=== PATIENT | female | born 1985 | race Caucasian/White ===

== ENCOUNTER 2016-10-31 15:12 | Emergency (ER) | payer MEDICAID ==
[~2016-10-31] VITALS: Ht 165.1 cm; Wt 78.0 kg
[2016-10-31 15:15] VITALS: BP 119/84
== END 2016-10-31 16:26 | disposition home or self-care (01) ==
LOC: ED 15:56
DX: G89.18 Other acute postprocedural pain (principal); R10.9 Unspecified abdominal pain; G89.29 Other chronic pain; I10 Essential (primary) hypertension; J45.909 Unspecified asthma, uncomplicated; E78.5 Hyperlipidemia, unspecified; Z87.01 Personal history of pneumonia (recurrent); Z98.890 Other specified postprocedural states
CPT/HCPCS: 99283

== ENCOUNTER 2017-02-26 22:05 | Emergency (ER) | payer MEDICAID ==
[~2017-02-26] VITALS: Ht 165.1 cm; Wt 78.0 kg
[2017-02-26 22:08] VITALS: BP 130/88
== END 2017-02-26 23:19 | disposition left against medical advice (07) ==
LOC: ED 23:05
DX: R51 Headache (principal); Z53.21 Procedure and treatment not carried out due to patient leaving prior to being seen by health care provider

== ENCOUNTER 2017-06-04 20:28 | Emergency (ER) | payer MEDICAID ==
[~2017-06-04] VITALS: Ht 165.1 cm; Wt 86.8 kg
[2017-06-04 20:35] VITALS: BP 131/89
[2017-06-04] MEDS ORDERED: ALBUTEROL/IPRATROPIUM 2.5MG/0.5MG, 3 ML NPPB ONE (21:00)
== END 2017-06-04 21:58 ==
LOC: ED 20:54
DX: J45.40 Moderate persistent asthma, uncomplicated (principal)
CPT/HCPCS: 71020; 93005; 94640; 99284; J7512; J7620

== ENCOUNTER 2017-07-17 22:40 | Emergency (ER) | payer MEDICAID ==
[~2017-07-17] VITALS: Ht 165.1 cm; Wt 86.4 kg
[2017-07-17 22:41] VITALS: BP 117/80
[2017-07-17] MEDS ORDERED: ACETAMINOPHEN 325 MG TABLET ONE (23:19)
[2017-07-17] MEDS ORDERED: ACETAMINOPHEN 325 MG TABLET PO ONE (23:30)
== END 2017-07-17 23:57 | disposition home or self-care (01) ==
LOC: ED 23:51
DX: S60.211A Contusion of right wrist, initial encounter (principal); S60.221A Contusion of right hand, initial encounter; X58.XXXA Exposure to other specified factors, initial encounter; Y93.89 Activity, other specified; Y99.8 Other external cause status; Y92.009 Unspecified place in unspecified non-institutional (private) residence as the place of occurrence of the external cause
CPT/HCPCS: 99284

== ENCOUNTER 2017-08-19 21:45 | Emergency (ER) | payer MEDICAID ==
[~2017-08-19] VITALS: Ht 165.1 cm; Wt 87.7 kg
[2017-08-19] MEDS ORDERED: ALBU1.25 NEB (22:12)
[2017-08-19] MEDS ORDERED: BUDE10.22 PO (22:12)
[2017-08-19] MEDS ORDERED: PROCHLORPERAZINE 5 MG/ML, 2ML ONE (22:48)
[2017-08-19] MEDS ORDERED: KETOROLAC 30 MG/1 ML ONE (22:48)
[2017-08-19] MEDS ORDERED: SODIUM CHLORIDE 0.9% 1,000ML IVBOLUS ONE (23:00)
[2017-08-19] MEDS ORDERED: PROCHLORPERAZINE 5 MG/ML, 2ML IVPush ONE (23:00)
[2017-08-19] MEDS ORDERED: KETOROLAC 30 MG/1 ML IVPush ONE (23:00)
[2017-08-19 23:13] LABS: BASOPHILS # (AUTO) 0.04 x10^3/uL (0-0.1); BASOPHILS % (AUTO) 0 % (0-1); EOSINOPHILS # (AUTO) 0.23 x10^3/uL (0-0.4); EOSINOPHILS % (AUTO) 2 % (1-7); LYMPHOCYTES % (AUTO) 26 % (22-44); MD NO; MEAN CORPUSCULAR HEMOGLOBIN 24.8 pg (27.0-34.8); MEAN CORPUSCULAR HGB CONC 32.1 g/dL (32.4-35.8); MEAN CORPUSCULAR VOLUME 77.3 fL (80-100); MEAN PLATELET VOLUME 9.9 fL (7.4-10.4); MONOCYTES # (AUTO) 0.49 x10^3/uL (0.2-0.8); MONOCYTES % (AUTO) 5 % (2-9); NEUTROPHILS # (AUTO) 6.54 x10^3/uL (1.8-6.8); NEUTROPHILS % (AUTO) 66 % (42-75); PLATELET COUNT 254 x10^3/uL (130-400); RED BLOOD COUNT 4.97 x10^6/uL (3.82-5.3)
[2017-08-19 23:22] LABS: ALBUMIN 3.6 g/dL (3.4-5.0); ANION GAP 7 mmol/L (5-15); CALCIUM 8.8 mg/dL (8.5-10.1); CHLORIDE 109 mmol/L (98-107); CREATININE 0.73 mg/dL (0.55-1.02)
[2017-08-19 23:25] LABS: TROPONIN I < 0.015 ng/mL (0.000-0.045)
[2017-08-20] VITALS: BP 152/84
== END 2017-08-20 00:03 | disposition home or self-care (01) ==
LOC: ED 22:28
DX: G43.009 Migraine without aura, not intractable, without status migrainosus (principal); I10 Essential (primary) hypertension; E78.5 Hyperlipidemia, unspecified; J45.909 Unspecified asthma, uncomplicated
CPT/HCPCS: 36415; 71045; 80048; 82040; 84484; 85025; 93005; 96374; 96375; 99285; J0780; J1885; J7030

== ENCOUNTER 2017-09-02 22:23 | Emergency (ER) | payer MEDICAID ==
[~2017-09-02] VITALS: Ht 165.1 cm; Wt 86.3 kg
[~2017-09-02 22:23] MED LIST: ALBU1.25 NEB; BUDE10.22 PO
[2017-09-02 22:26] VITALS: BP 125/88
[2017-09-02] MEDS ORDERED: IBUPROFEN 200 MG TABLET PO ONE (23:30)
[2017-09-02] MEDS ORDERED: IBUPROFEN 200 MG TABLET ONE (23:33)
== END 2017-09-03 | disposition home or self-care (01) ==
LOC: ED 22:54
DX: S39.012A Strain of muscle, fascia and tendon of lower back, initial encounter (principal); G43.909 Migraine, unspecified, not intractable, without status migrainosus; I10 Essential (primary) hypertension; E78.5 Hyperlipidemia, unspecified; W01.0XXA Fall on same level from slipping, tripping and stumbling without subsequent striking against object, initial encounter; Y93.89 Activity, other specified; Y92.89 Other specified places as the place of occurrence of the external cause; Y99.8 Other external cause status
CPT/HCPCS: 72072; 72110; 99284

== ENCOUNTER 2018-02-06 21:01 | Emergency (ER) | payer MEDICAID ==
[~2018-02-06] VITALS: Ht 160 cm; Wt 80.0 kg
[2018-02-06 21:12] VITALS: BP 117/78
[2018-02-06] MEDS ORDERED: IBUPROFEN 200 MG TABLET ONE (21:38)
[2018-02-06] MEDS ORDERED: IBUPROFEN 200 MG TABLET PO ONE (22:00)
[2018-02-07] MEDS ORDERED: CETIRIZINE 10 MG TABLET PO SCH (09:00)
== END 2018-02-06 23:18 | disposition home or self-care (01) ==
LOC: ED 23:16
DX: H10.233 Serous conjunctivitis, except viral, bilateral (principal); G89.11 Acute pain due to trauma; M79.641 Pain in right hand; F17.200 Nicotine dependence, unspecified, uncomplicated; I10 Essential (primary) hypertension; J45.909 Unspecified asthma, uncomplicated; E78.5 Hyperlipidemia, unspecified; F41.1 Generalized anxiety disorder; F32.9 Major depressive disorder, single episode, unspecified
CPT/HCPCS: 99284

== ENCOUNTER 2018-05-02 23:31 | Emergency (ER) | payer MEDICAID ==
[~2018-05-02] VITALS: Ht 165.1 cm; Wt 85.0 kg
[2018-05-02 23:34] VITALS: BP 135/88
[2018-05-02] MEDS ORDERED: ALBUTEROL/IPRATROPIUM 2.5MG/0.5MG, 3 ML ONE (23:59)
[2018-05-03] MEDS ORDERED: ALBUTEROL/IPRATROPIUM 2.5MG/0.5MG, 3 ML NPPB ONE
== END 2018-05-03 00:35 | disposition home or self-care (01) ==
LOC: ED 05-03 00:15
DX: J06.9 Acute upper respiratory infection, unspecified (principal); I10 Essential (primary) hypertension; J45.909 Unspecified asthma, uncomplicated
CPT/HCPCS: 71046; 94640; 99284; J7512

== ENCOUNTER 2018-07-30 20:55 | Emergency (ER) | payer MEDICAID ==
[~2018-07-30] VITALS: Ht 165.1 cm; Wt 86.4 kg
[~2018-07-30 20:55] MED LIST changes: +TIOT18CA INH
--- NOTE | 2018-07-30 21:27 | NUR ---
P MEDICATED PER SEP. PT GIVEN JUICE AND TISSUES PER REQUEST.
[2018-07-30 21:36] VITALS: BP 131/74
== END 2018-07-30 21:37 | disposition home or self-care (01) ==
LOC: ED 21:19
DX: J45.31 Mild persistent asthma with (acute) exacerbation (principal); J02.8 Acute pharyngitis due to other specified organisms; B97.89 Other viral agents as the cause of diseases classified elsewhere; E78.5 Hyperlipidemia, unspecified; I10 Essential (primary) hypertension; G43.909 Migraine, unspecified, not intractable, without status migrainosus
CPT/HCPCS: 99283; J7512

== ENCOUNTER 2018-08-26 19:38 | Emergency (ER) | payer MEDICAID ==
[~2018-08-26] VITALS: Ht 165.1 cm; Wt 68.0 kg
[2018-08-26 19:38] VITALS: BP 108/68
[2018-08-26] MEDS ORDERED: OXYcodone/APAP 5/325MG TABLET PO ONE (20:00)
[2018-08-26] MEDS ORDERED: PROMETHAZINE 25 MG/ML, 1ML IM ONE (20:00)
[2018-08-26] MEDS ORDERED: PROMETHAZINE 25 MG/ML, 1ML ONE (20:12)
[2018-08-26] MEDS ORDERED: OXYcodone/APAP 5/325MG TABLET ONE (20:13)
--- NOTE | 2018-08-26 20:25 | NUR ---
PT MEDICATED PER EMAR FOR PAIN. PT REFUSED PHENERGAN SINCE IT WAS AN INJECTION.
--- NOTE | 2018-08-26 20:34 | NUR ---
PT PROVIDED WITH WARM BLANKETS.
--- NOTE | 2018-08-26 21:29 | NUR ---
Patient/Caregiver given discharge instructions and they have confirmed that they understand the instructions. Patient ambulatory with steady gait.
[2018-08-26] MEDS ORDERED: KETOROLAC 30 MG/1 ML IM ONE (21:30)
== END 2018-08-26 21:31 | disposition home or self-care (01) ==
LOC: ED 20:06
DX: K08.89 Other specified disorders of teeth and supporting structures (principal); R11.10 Vomiting, unspecified; F17.200 Nicotine dependence, unspecified, uncomplicated; G43.909 Migraine, unspecified, not intractable, without status migrainosus; E78.5 Hyperlipidemia, unspecified; I10 Essential (primary) hypertension; J45.909 Unspecified asthma, uncomplicated; Z88.1 Allergy status to other antibiotic agents; Z88.5 Allergy status to narcotic agent
CPT/HCPCS: 99283

== ENCOUNTER 2018-09-29 22:56 | Emergency (ER) | payer MEDICAID ==
[~2018-09-29] VITALS: Ht 165.1 cm; Wt 85.5 kg
[2018-09-30] MEDS ORDERED: ACETAMINOPHEN 500 MG TABLET PO ONE
[2018-09-30] MEDS ORDERED: IBUPROFEN 600 MG TABLET PO ONE
[2018-09-30] MEDS ORDERED: IBUPROFEN 600 MG TABLET ONE (00:08)
[2018-09-30] MEDS ORDERED: ACETAMINOPHEN 500 MG TABLET ONE (00:08)
--- NOTE | 2018-09-30 00:16 | NUR ---
PT MEDICATED. VSS. WAITING FOR XRAY RESULTS. SPOUSE AT BEDSIDE
[2018-09-30 00:30] VITALS: BP 128/81
--- NOTE | 2018-09-30 00:55 | NUR ---
Patient given discharge instructions and they have confirmed that they understand the instructions. Patient ambulatory with steady gait.
== END 2018-09-30 00:58 | disposition home or self-care (01) ==
LOC: ED 09-30 00:31
DX: J44.1 Chronic obstructive pulmonary disease with (acute) exacerbation (principal); I10 Essential (primary) hypertension; F41.1 Generalized anxiety disorder; F31.9 Bipolar disorder, unspecified; E78.5 Hyperlipidemia, unspecified
CPT/HCPCS: 71045; 93005; 99284; J7512

== ENCOUNTER 2018-12-01 15:04 | Emergency (ER) | payer MEDICAID ==
[~2018-12-01] VITALS: Ht 165.1 cm; Wt 83.6 kg
[2018-12-01 15:07] VITALS: BP 125/85
[2018-12-01] MEDS ORDERED: ALBUTEROL/IPRATROPIUM 2.5MG/0.5MG, 3 ML NPPB ONE (15:30)
[2018-12-01 15:50] LABS: BASOPHILS # (AUTO) 0.02 x10^3/uL (0-0.1); BASOPHILS % (AUTO) 0 % (0-1); EOSINOPHILS # (AUTO) 0.29 x10^3/uL (0-0.4); EOSINOPHILS % (AUTO) 3 % (1-7); LYMPHOCYTES # (AUTO) 2.37 x10^3/uL (1-3.4); LYMPHOCYTES % (AUTO) 25 % (22-44); MD NO; MEAN CORPUSCULAR HEMOGLOBIN 26.8 pg (27.0-34.8); MEAN CORPUSCULAR HGB CONC 32.4 g/dL (32.4-35.8); MEAN CORPUSCULAR VOLUME 82.5 fL (80-100); MEAN PLATELET VOLUME 10.4 fL (7.4-10.4); MONOCYTES % (AUTO) 3 % (2-9); NEUTROPHILS # (AUTO) 6.52 x10^3/uL (1.8-6.8); NEUTROPHILS % (AUTO) 69 % (42-75); PLATELET COUNT 219 x10^3/uL (130-400); RED BLOOD COUNT 4.56 x10^6/uL (3.82-5.3); RED CELL DISTRIBUTION WIDTH 13.7 % (9.6-15.2)
[2018-12-01 16:02] LABS: ALBUMIN 3.5 g/dL (3.4-5.0); ANION GAP 6 mmol/L (5-15); CHLORIDE 110 mmol/L (98-107)
[2018-12-01 16:10] LABS: ALANINE AMINOTRANSFERASE 17 U/L (12-78); ALKALINE PHOSPHATASE 41 U/L (45-117); BILIRUBIN,TOTAL 0.1 mg/dL (0.2-1.0); CALCIUM 8.4 mg/dL (8.5-10.1); CREATININE 0.82 mg/dL (0.55-1.02); TOTAL PROTEIN 6.8 g/dL (6.4-8.2); TROPONIN I < 0.015 ng/mL (0.000-0.045)
[2018-12-01] MEDS ORDERED: ADVAIR (21:33)
== END 2018-12-01 16:57 | disposition left against medical advice (07) ==
LOC: ED 16:51
DX: R07.9 Chest pain, unspecified (principal)
CPT/HCPCS: 36415; 71046; 80053; 84484; 85025; 93005; 99284

== ENCOUNTER 2018-12-01 21:15 | Emergency (ER) | payer MEDICAID ==
[~2018-12-01] VITALS: Ht 165.1 cm; Wt 86.0 kg
[2018-12-01 21:20] VITALS: BP 131/82
[2018-12-01] MEDS ORDERED: ADVAIR (21:33)
--- NOTE | 2018-12-01 21:33 | NUR ---
WERE HERE EARLIER, LEFT BEFORE REC ALL RESULTS THEY BECAME ANXIOUS. PT NOTES THAT SHE IS OUT OF HER INHALERS AND IS ASKING FOR A REFILL.
[2018-12-01] MEDS ORDERED: IBUPROFEN 800 MG TABLET PO ONE (22:00)
[2018-12-01] MEDS ORDERED: IBUPROFEN 800 MG TABLET ONE (22:10)
== END 2018-12-01 22:23 | disposition home or self-care (01) ==
LOC: ED 21:32
DX: J45.31 Mild persistent asthma with (acute) exacerbation (principal); R06.00 Dyspnea, unspecified; Z76.0 Encounter for issue of repeat prescription; I10 Essential (primary) hypertension; E78.5 Hyperlipidemia, unspecified; M06.9 Rheumatoid arthritis, unspecified; Z87.891 Personal history of nicotine dependence
CPT/HCPCS: 93005; 99283

== ENCOUNTER 2019-05-31 16:29 | Emergency (ER) | payer MEDICAID ==
[~2019-05-31] VITALS: Ht 165.1 cm; Wt 79.2 kg
[~2019-05-31 16:29] MED LIST changes: +ADVAIR
[2019-05-31 16:32] VITALS: BP 116/80
[2019-05-31] MEDS ORDERED: ALBUTEROL SULFATE 2.5 MG/3 ML ONE (17:12)
[2019-05-31] MEDS ORDERED: ALBUTEROL SULFATE 2.5 MG/3 ML NPPB ONE (17:30)
== END 2019-05-31 17:38 | disposition home or self-care (01) ==
LOC: ED 17:32
DX: B34.9 Viral infection, unspecified (principal); I10 Essential (primary) hypertension; J45.909 Unspecified asthma, uncomplicated; F31.9 Bipolar disorder, unspecified; F41.1 Generalized anxiety disorder; M06.9 Rheumatoid arthritis, unspecified; E78.5 Hyperlipidemia, unspecified; Z88.8 Allergy status to other drugs, medicaments and biological substances; Z88.1 Allergy status to other antibiotic agents
CPT/HCPCS: 71046; 93005; 94640; 99284; J7613

== ENCOUNTER 2019-07-15 14:49 | Emergency (ER) | payer MEDICAID ==
[~2019-07-15] VITALS: Ht 165.1 cm; Wt 81.8 kg
--- NOTE | 2019-07-15 16:04 | NUR ---
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
[2019-07-15] MEDS ORDERED: ACETAMINOPHEN 500 MG TABLET ONE (16:53)
[2019-07-15] MEDS ORDERED: ALBUTEROL/IPRATROPIUM 2.5MG/0.5MG, 3 ML ONE (16:57)
[2019-07-15] MEDS ORDERED: ACETAMINOPHEN 500 MG TABLET PO ONE (17:00)
[2019-07-15] MEDS ORDERED: ALBUTEROL/IPRATROPIUM 2.5MG/0.5MG, 3 ML NPPB ONE (17:00)
[2019-07-15 17:59] VITALS: BP 120/74
== END 2019-07-15 18:02 | disposition home or self-care (01) ==
LOC: ED 16:48
DX: J45.31 Mild persistent asthma with (acute) exacerbation (principal); I10 Essential (primary) hypertension; E78.5 Hyperlipidemia, unspecified; F17.200 Nicotine dependence, unspecified, uncomplicated; Z87.01 Personal history of pneumonia (recurrent); Z98.890 Other specified postprocedural states; Z98.51 Tubal ligation status
CPT/HCPCS: 71045; 93005; 94640; 99283; J7620

== ENCOUNTER 2019-09-25 21:50 | Emergency (ER) | payer MEDICAID ==
[~2019-09-25] VITALS: Ht 165.1 cm; Wt 85.0 kg
--- NOTE | 2019-09-25 23:57 | NUR ---
PT TO ED REPORTING ASTHMA EXACERBATION X2 DAYS, REPORTS SOB WITH OCCASIONAL NONPRODUCTIVE COUGH. DENIES ANY OTHER C/O AT THIS TIME. REPORTS USING INHALER AT HOME WITHOUT RELIEF. PT CONNECTED TO ALL MONITORING, CALL LIGHT WITHIN REACH, ALL SAFETY MEASURES IN PLACE. FAMILY AT BS FOR SUPPORT.
[2019-09-26] MEDS ORDERED: ALBUTEROL SULFATE 2.5 MG/3 ML ONE (00:16)
--- NOTE | 2019-09-26 00:25 | NUR ---
ERP IN ROOM AT THIS TIME.
--- NOTE | 2019-09-26 00:25 | NUR ---
RT IN ROOM AT THIS TIME.
[2019-09-26] MEDS ORDERED: ALBUTEROL SULFATE 2.5 MG/3 ML NPPB ONE (00:30)
[2019-09-26 01:06] VITALS: BP 117/81
== END 2019-09-26 01:08 | disposition home or self-care (01) ==
LOC: ED 23:50
DX: R05 Cough (principal); R06.00 Dyspnea, unspecified; J45.909 Unspecified asthma, uncomplicated; M06.9 Rheumatoid arthritis, unspecified; I10 Essential (primary) hypertension; E78.5 Hyperlipidemia, unspecified; Z87.891 Personal history of nicotine dependence
CPT/HCPCS: 71045; 93005; 94640; 99283; J7512; J7613